=== PATIENT | female | born 1945 | race Caucasian/White ===

== ENCOUNTER → 2016-08-18 | Outpatient (CLI) | payer MEDICARE, MEDICAID ==
[~2016-08-18] MED LIST: ALBU8.5H3 INH; ALBU8.5H5 INH; AZIT-14 PO; BENZ100C PO; BENZ100C4 PO; BETA15CR5 TP; BUDE10.2 INH; BUDE10.22 INH; CEFD300C2 PO; CHOL4PAC2 PO; DIPH28CR3 TP; DOCU-30 PO; FLUO15CR2 TP; GUAI10LI PO; GUAI600T22 PO; IPRA3AMP NEB; LACT1CAP24 PO; LEVO500T33 PO; LEVO750T26 PO; METH4TAB2 PO; MONT10TA9 PO; NEB; NICO1PAT5 TD; OXYC-229 PO; POLY17PO5 PO; PRED20TA PO; SULF1TAB24 PO; TIOT18CA INH; TRIA115C TP; roxicet PO; sodium PO
== END | disposition home or self-care (01) ==
LOC: CFH 11:07
PROVIDERS: ATTEND Nurse Practitioner
DX: Z02.9 Encounter for administrative examinations, unspecified (principal)

== ENCOUNTER 2016-08-31 03:53 | Inpatient (IN) | payer MEDICARE, MEDICAID ==
[~2016-08-31] VITALS: Ht 162.6 cm; Wt 51.0 kg
[2016-08-31] MEDS ORDERED: SODIUM CHLORIDE FLUSH 10ML SYR IVF ONE (05:00)
[2016-08-31 05:51] LABS: HEMOGLOBIN 12.9 g/dL (11.7-16.4)
[2016-08-31 06:00] LABS: ASPARTATE AMINO TRANSFERASE 16 U/L (15-37); BLOOD UREA NITROGEN 12 mg/dL (7-18)
[2016-08-31 06:11] LABS: IS PT STATUS REG ER OR PRE ER? YES
[2016-08-31] MEDS ORDERED: SODIUM CHLORIDE FLUSH 10ML SYR IVF PRN (06:30)
[2016-08-31] MEDS: methylPREDNISolone SOD SUCC 125 MG/2 ML IVPush SCH ×3 (07:30→21:09)
[2016-08-31] MEDS ORDERED: POTASSIUM CHLORIDE 20 MEQ TAB.ER.PRT PO ONE (07:30)
[2016-08-31] MEDS ORDERED: ONDANSETRON 2MG/ML, 2ML IVP PRN (07:30)
[2016-08-31] MEDS ORDERED: ENOXAPARIN 40 MG/0.4 ML SQ SCH (07:30)
[2016-08-31] MEDS ORDERED: TEMAZEPAM 15 MG CAPSULE PO PRN (07:30)
[2016-08-31] MEDS ORDERED: ACETAMINOPHEN 325 MG TABLET PO PRN (07:30)
[2016-08-31] MEDS ORDERED: OXYcodone/APAP 10/325MG TABLET PO PRN (07:30)
[2016-08-31] MEDS ORDERED: GUAIFENESIN/DM 200-20MG, 10ML UDC PO PRN (07:30)
[2016-08-31] MEDS ORDERED: methylPREDNISolone SOD SUCC 125 MG/2 ML ONE (08:32)
[2016-08-31] MEDS ORDERED: POTASSIUM CHLORIDE 20 MEQ TAB.ER.PRT ONE (08:33)
[2016-08-31] MEDS: SODIUM CHLORIDE FLUSH 10ML SYR IVF SCH ×2 (09:00→21:09)
[2016-08-31] MEDS ORDERED: ALBUTEROL/IPRATROPIUM 2.5MG/0.5MG, 3 ML ONE ×2 (09:39→13:51)
[2016-08-31] MEDS ORDERED: ALBUTEROL/IPRATROPIUM 2.5MG/0.5MG, 3 ML NPPB SCH (10:00)
[2016-08-31] MEDS: FLUTICASONE/VILANTEROL 200-25MCG/INH INH SCH (10:00)
[2016-08-31] MEDS ORDERED: ALBUTEROL/IPRATROPIUM 2.5MG/0.5MG, 3 ML NPPB PRN ×2 (10:00→15:00)
[2016-08-31 10:50] VITALS: BP 97/55
[2016-08-31] MEDS: DOXYCYCLINE 100 MG in DEXTROSE 5% 250 ML IV SCH ×2 (11:09→23:25)
[2016-08-31] MEDS: FLUTICASONE NASAL SPRAY 16GM NAS SCH ×2 (11:09→21:09)
[2016-08-31 13:31] VITALS: BP 100/63
[2016-08-31] MEDS: ALBUTEROL/IPRATROPIUM 2.5MG/0.5MG, 3 ML NPPB SCH ×3 (18:15→23:43)
[2016-08-31 18:39] VITALS: BP 110/66
[2016-08-31] MEDS ORDERED: MONTELUKAST 10 MG TABLET PO SCH (21:00)
[2016-09-01 01:18] VITALS: BP 104/68
[2016-09-01] MEDS: methylPREDNISolone SOD SUCC 125 MG/2 ML IVPush SCH ×3 (05:25→12:59)
[2016-09-01 05:29] LABS: BLOOD UREA NITROGEN 21 mg/dL (7-18)
[2016-09-01 05:46] LABS: HEMOGLOBIN 14.4 g/dL (11.7-16.4)
[2016-09-01] MEDS: ALBUTEROL/IPRATROPIUM 2.5MG/0.5MG, 3 ML NPPB SCH ×3 (06:00→13:49)
[2016-09-01] MEDS: ENOXAPARIN 40 MG/0.4 ML SQ SCH ×2 (07:30→08:07)
[2016-09-01] MEDS: FLUTICASONE NASAL SPRAY 16GM NAS SCH (08:07)
[2016-09-01 08:22] VITALS: BP 96/62
[2016-09-01 09:38] VITALS: BP 98/60
[2016-09-01] MEDS: DOXYCYCLINE 100 MG in DEXTROSE 5% 250 ML IV SCH (09:53)
[2016-09-01] MEDS: SODIUM CHLORIDE FLUSH 10ML SYR IVF SCH (09:53)
[2016-09-01] MEDS: FLUTICASONE/VILANTEROL 200-25MCG/INH INH SCH (12:59)
[2016-09-01 13:00] VITALS: BP 111/75
[2016-09-01] MEDS ORDERED: DOXY100C2 PO (14:27)
[2016-09-01] MEDS ORDERED: METH4TAB2 PO (14:27)
== END 2016-09-01 15:00 | disposition home or self-care (01) | DRG 189 ==
LOC: ED 05:03 → EDIP 06:30 → 4EST 08:56
DX: J96.21 Acute and chronic respiratory failure with hypoxia (principal); J44.1 Chronic obstructive pulmonary disease with (acute) exacerbation; F11.20 Opioid dependence, uncomplicated; J44.0 Chronic obstructive pulmonary disease with (acute) lower respiratory infection; D69.6 Thrombocytopenia, unspecified; E11.9 Type 2 diabetes mellitus without complications; F17.200 Nicotine dependence, unspecified, uncomplicated; G47.33 Obstructive sleep apnea (adult) (pediatric); G89.29 Other chronic pain; I11.0 Hypertensive heart disease with heart failure; I48.91 Unspecified atrial fibrillation; I50.9 Heart failure, unspecified; J20.9 Acute bronchitis, unspecified; K21.9 Gastro-esophageal reflux disease without esophagitis; M54.9 Dorsalgia, unspecified; M10.9 Gout, unspecified; Z82.49 Family history of ischemic heart disease and other diseases of the circulatory system; Z99.81 Dependence on supplemental oxygen; Z90.89 Acquired absence of other organs; R42 Dizziness and giddiness
CPT/HCPCS: 36415; 71010; 80048; 80053; 83880; 84484; 85025; 87070; 87205; 87324; 93005; 94640; 96374; J1650; J7060; J7620; J2930; J7512

== ENCOUNTER 2016-09-03 13:46 | Emergency (ER) | payer MEDICARE, MEDICAID ==
[~2016-09-03] VITALS: Ht 162.6 cm; Wt 54.5 kg
[~2016-09-03 13:46] MED LIST changes: +DOXY100C2 PO
[2016-09-03] MEDS ORDERED: SODIUM CHLORIDE 0.9% 1,000ML IVBOLUS ONE (14:30)
[2016-09-03] MEDS ORDERED: KETOROLAC 30 MG/1 ML IVPush ONE (14:30)
[2016-09-03] MEDS ORDERED: SODIUM CHLORIDE FLUSH 10ML SYR IVF ONE (14:30)
[2016-09-03 14:54] LABS: BLOOD UREA NITROGEN 20 mg/dL (7-18)
[2016-09-03 14:58] LABS: HEMOGLOBIN 14.9 g/dL (11.7-16.4)
[2016-09-03 15:02] LABS: IS PT STATUS REG ER OR PRE ER? YES
[2016-09-03 16:09] VITALS: BP 119/77
== END 2016-09-03 17:59 | disposition home or self-care (01) ==
LOC: ED 15:56
DX: R52 Pain, unspecified (principal); E11.9 Type 2 diabetes mellitus without complications; I48.91 Unspecified atrial fibrillation; I11.0 Hypertensive heart disease with heart failure; J44.9 Chronic obstructive pulmonary disease, unspecified; I50.9 Heart failure, unspecified; D72.829 Elevated white blood cell count, unspecified
CPT/HCPCS: 36415; 71010; 80048; 82040; 82550; 84439; 84443; 84484; 85025; 93005; 99285; J7030

== ENCOUNTER 2016-09-07 19:24 | Emergency (ER) | payer MEDICARE, MEDICAID ==
[~2016-09-07] VITALS: Ht 162.6 cm; Wt 54.1 kg
[2016-09-07] MEDS ORDERED: ALBUTEROL SULFATE 2.5 MG/3 ML NPPB ONE (20:00)
[2016-09-07] MEDS ORDERED: SODIUM CHLORIDE FLUSH 10ML SYR IVF ONE (20:00)
[2016-09-07 21:10] LABS: HEMOGLOBIN 12.6 g/dL (11.7-16.4)
[2016-09-07 21:11] LABS: ASPARTATE AMINO TRANSFERASE 29 U/L (15-37); BLOOD UREA NITROGEN 11 mg/dL (7-18)
[2016-09-07] MEDS ORDERED: SODIUM CHLORIDE 0.9% 1,000 ML IV ONE (22:25)
[2016-09-07] MEDS ORDERED: AZITHROMYCIN 500 MG in SODIUM CHLORIDE 0.9% 250 ML IVPB ONE (22:30)
[2016-09-07] MEDS ORDERED: SODIUM CHLORIDE 0.9% 1,000ML IVBOLUS ONE (22:30)
[2016-09-07] MEDS ORDERED: CEFTRIAXONE PMX 1GM/50ML 50 ML IVPB ONE (22:30)
[2016-09-07] MEDS ORDERED: CEFTRIAXONE PMX 1GM/50ML 50 ML ONE (22:50)
[2016-09-08 00:13] VITALS: BP 106/57
== END 2016-09-08 00:54 | disposition left against medical advice (07) ==
LOC: ED 23:06
DX: J15.9 Unspecified bacterial pneumonia (principal); J44.1 Chronic obstructive pulmonary disease with (acute) exacerbation; R19.7 Diarrhea, unspecified; M54.9 Dorsalgia, unspecified; G89.29 Other chronic pain; I48.91 Unspecified atrial fibrillation; Z99.81 Dependence on supplemental oxygen
CPT/HCPCS: 36415; 71010; 80053; 83605; 85025; 87040; 93005; 94640; 96365; 99285; J0696; J7030; J7512; J7613

== ENCOUNTER 2016-10-11 20:54 | Inpatient (IN) | payer MEDICARE, MEDICAID ==
[~2016-10-11] VITALS: Ht 167.6 cm; Wt 58.8 kg
[~2016-10-11 20:54] MED LIST changes: -AZIT-14 PO; +AZIT250T89 PO; -CEFD300C2 PO; +CEFD300C37 PO
[2016-10-11] MEDS ORDERED: ALBUTEROL/IPRATROPIUM 2.5MG/0.5MG, 3 ML NPPB ONE (21:30)
[2016-10-11] MEDS ORDERED: AZITHROMYCIN 500 MG in SODIUM CHLORIDE 0.9% 250 ML IVPB ONE (22:00)
[2016-10-11] MEDS ORDERED: SODIUM CHLORIDE FLUSH 10ML SYR IVF ONE (22:00)
[2016-10-11] MEDS ORDERED: SODIUM CHLORIDE 0.9% 1,000ML IVBOLUS ONE (22:00)
[2016-10-11] MEDS ORDERED: CEFTRIAXONE 1,000 MG in SODIUM CHLORIDE 0.9% 50 ML IVPB ONE (22:00)
[2016-10-11] MEDS ORDERED: ALBUTEROL/IPRATROPIUM 2.5MG/0.5MG, 3 ML ONE (22:00)
[2016-10-11 22:20] LABS: ASPARTATE AMINO TRANSFERASE 19 U/L (15-37); BLOOD UREA NITROGEN 15 mg/dL (7-18)
[2016-10-11 22:21] LABS: IS PT STATUS REG ER OR PRE ER? YES
[2016-10-11 22:24] LABS: DIFF TOTAL CELLS COUNTED 100 CELL DIFF
[2016-10-11 22:27] LABS: VERIFY COUNTS? YES
[2016-10-11 22:28] LABS: LARGE PLATELETS 1+
[2016-10-11] MEDS ORDERED: PLEASE ENTER HEIGHT AND WEIGHT MC SCH (22:30)
[2016-10-11] MEDS ORDERED: CEFTRIAXONE PMX 1GM/50ML 50 ML ONE (22:33)
[2016-10-11] MEDS ORDERED: OXYcodone/APAP 5/325MG TABLET PO PRN (23:30)
[2016-10-11] MEDS ORDERED: ACETAMINOPHEN 325 MG TABLET PO PRN (23:30)
[2016-10-11] MEDS ORDERED: methylPREDNISolone SOD SUCC 125 MG/2 ML IVPush SCH (23:30)
[2016-10-11] MEDS: CEFTRIAXONE 1,000 MG in SODIUM CHLORIDE 0.9% 50 ML IV SCH (23:30)
[2016-10-11] MEDS ORDERED: ONDANSETRON 2MG/ML, 2ML IVPush PRN (23:30)
[2016-10-12 00:33] VITALS: BP 106/58
[2016-10-12] MEDS: GUAIFENESIN 200 MG TABLET PO SCH ×5 (01:38→20:29)
[2016-10-12] MEDS: ENOXAPARIN 40 MG/0.4 ML SQ SCH ×2 (01:38→23:30)
[2016-10-12] MEDS: FAMOTIDINE 20 MG TABLET PO SCH ×3 (01:38→20:29)
[2016-10-12] MEDS: SODIUM CHLORIDE 0.9% 1,000 ML IV SCH ×3 (01:39→20:27)
[2016-10-12] MEDS: AZITHROMYCIN 500 MG in SODIUM CHLORIDE 0.9% 250 ML IV SCH (01:39)
[2016-10-12 01:43] VITALS: BP 106/50
[2016-10-12] MEDS ORDERED: ALBUTEROL/IPRATROPIUM 2.5MG/0.5MG, 3 ML NPPB PRN (02:30)
[2016-10-12 05:25] LABS: BLOOD UREA NITROGEN 14 mg/dL (7-18)
[2016-10-12 05:34] LABS: DIFF TOTAL CELLS COUNTED 100 CELL DIFF
[2016-10-12 05:36] LABS: LARGE PLATELETS 1+; VERIFY COUNTS? YES
[2016-10-12] MEDS: ALBUTEROL/IPRATROPIUM 2.5MG/0.5MG, 3 ML NPPB SCH ×4 (07:39→20:00)
[2016-10-12 08:01] VITALS: BP 120/54
[2016-10-12] MEDS: methylPREDNISolone SOD SUCC 125 MG/2 ML IVPush SCH ×2 (08:33→20:28)
[2016-10-12] MEDS: CHOLESTYRAMINE 4GM PACKET PO SCH (08:34)
[2016-10-12] MEDS: FLUTICASONE/VILANTEROL 100-25MCG/INH INH SCH (08:43)
[2016-10-12] MEDS: DIPHENHYDRAMINE/ZINC CRM 2%, 30GM TP SCH ×3 (08:43→20:28)
[2016-10-12] MEDS: CEFTRIAXONE 1,000 MG in SODIUM CHLORIDE 0.9% 50 ML IV SCH ×2 (11:44→23:45)
[2016-10-12 13:35] VITALS: BP 101/62
[2016-10-12] MEDS ORDERED: NICOTINE 21 MG/24 HR PATCH.TD24 TD SCH (14:30)
[2016-10-12] MEDS ORDERED: SODIUM CHLORIDE 0.9%, 500ML IVBOLUS ONE (16:30)
[2016-10-12 18:36] VITALS: BP 103/61
[2016-10-12] MEDS ORDERED: MONTELUKAST 10 MG TABLET PO SCH (21:00)
[2016-10-13] MEDS: AZITHROMYCIN 500 MG in SODIUM CHLORIDE 0.9% 250 ML IV SCH (01:54)
[2016-10-13 02:15] VITALS: BP 108/65
[2016-10-13] MEDS: GUAIFENESIN 200 MG TABLET PO SCH (04:16)
[2016-10-13 05:38] LABS: BLOOD UREA NITROGEN 15 mg/dL (7-18)
[2016-10-13] MEDS: SODIUM CHLORIDE 0.9% 1,000 ML IV SCH (06:27)
[2016-10-13 06:58] VITALS: BP 119/70
[2016-10-13] MEDS ORDERED: SODIUM CHLORIDE 0.45% 1,000 ML IV SCH (07:30)
[2016-10-13] MEDS: ALBUTEROL/IPRATROPIUM 2.5MG/0.5MG, 3 ML NPPB SCH (08:05)
[2016-10-13] MEDS: CHOLESTYRAMINE 4GM PACKET PO SCH (09:00)
[2016-10-13] MEDS: DIPHENHYDRAMINE/ZINC CRM 2%, 30GM TP SCH (09:00)
[2016-10-13] MEDS: FLUTICASONE/VILANTEROL 100-25MCG/INH INH SCH (09:25)
[2016-10-13] MEDS: methylPREDNISolone SOD SUCC 125 MG/2 ML IVPush SCH (09:25)
[2016-10-13] MEDS: FAMOTIDINE 20 MG TABLET PO SCH (09:26)
== END 2016-10-13 10:10 | disposition left against medical advice (07) | DRG 871 ==
LOC: ED 22:25 → EDIP 22:26 → ED 22:38 → 4WST 10-12 00:02
PROVIDERS: ADMIT Internal Medicine; ATTEND Internal Medicine
DX: A41.9 Sepsis, unspecified organism (principal); J96.21 Acute and chronic respiratory failure with hypoxia; J15.9 Unspecified bacterial pneumonia; J44.0 Chronic obstructive pulmonary disease with (acute) lower respiratory infection; J44.1 Chronic obstructive pulmonary disease with (acute) exacerbation; E87.0 Hyperosmolality and hypernatremia; E87.2 Acidosis; I50.9 Heart failure, unspecified; I11.0 Hypertensive heart disease with heart failure; I48.91 Unspecified atrial fibrillation; K21.9 Gastro-esophageal reflux disease without esophagitis; M10.9 Gout, unspecified; E11.65 Type 2 diabetes mellitus with hyperglycemia; F17.200 Nicotine dependence, unspecified, uncomplicated; E87.8 Other disorders of electrolyte and fluid balance, not elsewhere classified; Z82.49 Family history of ischemic heart disease and other diseases of the circulatory system; Z99.81 Dependence on supplemental oxygen; Z91.19 Patient's noncompliance with other medical treatment and regimen; T38.0X5A Adverse effect of glucocorticoids and synthetic analogues, initial encounter
CPT/HCPCS: 36415; 71010; 80048; 80053; 83036; 83605; 84145; 84439; 84443; 84484; 85025; 87040; 87070; 87205; 93005; 94640; 96365; J0456; J0696; J1650; J7620; J2930; J7030; J7040; J7050; J7512

== ENCOUNTER → 2017-04-26 | Outpatient (CLI) | payer MEDICARE, MEDICAID ==
[~2017-04-26] MED LIST changes: -ALBU8.5H3 INH; +ALBU8.5H8 INH; +BENZ-17 PO; -BENZ100C4 PO; +DOCU-131 PO; -DOCU-30 PO; -GUAI600T22 PO; +GUAI600T31 PO; -LEVO500T33 PO; +LEVO500T47 PO; +NICO-487 TD; -NICO1PAT5 TD; -OXYC-229 PO; +OXYC-307 PO
== END | disposition home or self-care (01) ==
LOC: RAD 11:08
PROVIDERS: ATTEND Nurse Practitioner
DX: M47.896 Other spondylosis, lumbar region (principal); M41.86 Other forms of scoliosis, lumbar region; M48.061 Spinal stenosis, lumbar region without neurogenic claudication; M80.08XS Age-related osteoporosis with current pathological fracture, vertebra(e), sequela; M51.34 Other intervertebral disc degeneration, thoracic region; G89.29 Other chronic pain
CPT/HCPCS: 72072; 72100

== ENCOUNTER 2017-05-05 11:57 | Emergency (ER) | payer MEDICARE, MEDICAID ==
[~2017-05-05] VITALS: Ht 162.6 cm; Wt 54.7 kg
[2017-05-05 12:06] VITALS: BP 105/70
== END 2017-05-05 12:44 | disposition home or self-care (01) ==
LOC: ED 12:26
DX: Z00.00 Encounter for general adult medical examination without abnormal findings (principal)
CPT/HCPCS: 99281

== ENCOUNTER 2017-08-11 21:19 | Emergency (ER) | payer MEDICARE, MEDICAID ==
[~2017-08-11] VITALS: Ht 167.6 cm; Wt 56.7 kg
[2017-08-11] MEDS ORDERED: ALBUTEROL/IPRATROPIUM 2.5MG/0.5MG, 3 ML ONE (21:45)
[2017-08-11 21:49] LABS: BASOPHILS # (AUTO) 0.08 x10^3/uL (0-0.1); BASOPHILS % (AUTO) 1 % (0-1); EOSINOPHILS # (AUTO) 0.31 x10^3/uL (0-0.4); EOSINOPHILS % (AUTO) 3 % (1-7); LYMPHOCYTES # (AUTO) 2.14 x10^3/uL (1-3.4); LYMPHOCYTES % (AUTO) 23 % (22-44); MD NO; MEAN CORPUSCULAR HEMOGLOBIN 30.8 pg (27.0-34.8); MEAN CORPUSCULAR HGB CONC 33.8 g/dL (32.4-35.8); MEAN CORPUSCULAR VOLUME 91.3 fL (80-100); MEAN PLATELET VOLUME 10.9 fL (7.4-10.4); MONOCYTES # (AUTO) 0.71 x10^3/uL (0.2-0.8); MONOCYTES % (AUTO) 8 % (2-9); NEUTROPHILS # (AUTO) 6.02 x10^3/uL (1.8-6.8); NEUTROPHILS % (AUTO) 65 % (42-75); PLATELET COUNT 199 x10^3/uL (130-400); RED BLOOD COUNT 4.11 x10^6/uL (3.82-5.3); RED CELL DISTRIBUTION WIDTH 13.3 % (9.6-15.2)
[2017-08-11 21:56] LABS: INTERNATIONAL NORMALIZED RATIO 1.04 (0.93-1.1); PROTHROMBIN TIME 10.8 Seconds (9.6-11.5)
[2017-08-11 22:00] LABS: ALANINE AMINOTRANSFERASE 18 U/L (12-78); ALBUMIN 3.4 g/dL (3.4-5.0); ANION GAP 9 mmol/L (5-15); CALCIUM 8.1 mg/dL (8.5-10.1); CHLORIDE 110 mmol/L (98-107); CREATININE 0.99 mg/dL (0.55-1.02)
[2017-08-11] MEDS ORDERED: SODIUM CHLORIDE FLUSH 10ML SYR IVF ONE (22:00)
[2017-08-11] MEDS ORDERED: ALBUTEROL/IPRATROPIUM 2.5MG/0.5MG, 3 ML NEB ONE (22:00)
[2017-08-11 22:04] LABS: ALKALINE PHOSPHATASE 76 U/L (45-117); BILIRUBIN,TOTAL 0.2 mg/dL (0.2-1.0); TOTAL PROTEIN 6.8 g/dL (6.4-8.2); TROPONIN I < 0.015 ng/mL (0.000-0.045)
[2017-08-11] MEDS ORDERED: methylPREDNISolone SOD SUCC 125 MG/2 ML ONE (22:29)
[2017-08-11] MEDS ORDERED: methylPREDNISolone SOD SUCC 125 MG/2 ML IVPush ONE (22:30)
[2017-08-11 23:20] VITALS: BP 124/80
== END 2017-08-11 23:22 | disposition home or self-care (01) ==
LOC: ED 22:45
DX: J44.1 Chronic obstructive pulmonary disease with (acute) exacerbation (principal); R91.1 Solitary pulmonary nodule; I48.91 Unspecified atrial fibrillation; E11.9 Type 2 diabetes mellitus without complications; J44.9 Chronic obstructive pulmonary disease, unspecified; I10 Essential (primary) hypertension; D69.6 Thrombocytopenia, unspecified; D72.829 Elevated white blood cell count, unspecified; I50.9 Heart failure, unspecified
CPT/HCPCS: 36415; 71045; 80053; 83880; 84484; 85025; 85610; 85730; 93005; 94640; 96374; 99285; J2930; J7620

== ENCOUNTER → 2017-11-06 | Outpatient (CLI) | payer MEDICAID, MEDICARE | END | disposition home or self-care (01) | LOC: CFH 12:21 | PROVIDERS: ATTEND Nurse Practitioner Family | DX: J44.9 Chronic obstructive pulmonary disease, unspecified (principal); R91.8 Other nonspecific abnormal finding of lung field; R93.8 Abnormal findings on diagnostic imaging of other specified body structures; F17.200 Nicotine dependence, unspecified, uncomplicated | CPT/HCPCS: 71250 ==

== ENCOUNTER 2017-11-29 20:30 | Emergency (ER) | payer MEDICAID, MEDICARE ==
[~2017-11-29] VITALS: Ht 162.6 cm; Wt 53.2 kg
[2017-11-29 20:39] VITALS: BP 113/75
[2017-11-29 21:59] LABS: BASOPHILS # (AUTO) 0.02 x10^3/uL (0-0.1); BASOPHILS % (AUTO) 0 % (0-1); EOSINOPHILS # (AUTO) 0.29 x10^3/uL (0-0.4); EOSINOPHILS % (AUTO) 3 % (1-7); LYMPHOCYTES % (AUTO) 20 % (22-44); MD NO; MEAN CORPUSCULAR HEMOGLOBIN 30.8 pg (27.0-34.8); MEAN CORPUSCULAR HGB CONC 33.4 g/dL (32.4-35.8); MEAN CORPUSCULAR VOLUME 92.1 fL (80-100); MEAN PLATELET VOLUME 11.3 fL (7.4-10.4); MONOCYTES # (AUTO) 0.81 x10^3/uL (0.2-0.8); MONOCYTES % (AUTO) 8 % (2-9); NEUTROPHILS % (AUTO) 69 % (42-75); PLATELET COUNT 158 x10^3/uL (130-400); RED CELL DISTRIBUTION WIDTH 13.6 % (9.6-15.2)
[2017-11-29 22:07] LABS: ALANINE AMINOTRANSFERASE 20 U/L (12-78); ALBUMIN 3.3 g/dL (3.4-5.0); ANION GAP 5 mmol/L (5-15); CALCIUM 8.7 mg/dL (8.5-10.1); CHLORIDE 110 mmol/L (98-107); CREATININE 0.76 mg/dL (0.55-1.02)
[2017-11-29 22:11] LABS: ALKALINE PHOSPHATASE 69 U/L (45-117); BILIRUBIN,TOTAL 0.2 mg/dL (0.2-1.0); TOTAL PROTEIN 6.5 g/dL (6.4-8.2)
== END 2017-11-29 22:54 | disposition home or self-care (01) ==
LOC: ED 21:15
DX: M79.652 Pain in left thigh (principal); I48.91 Unspecified atrial fibrillation; J44.9 Chronic obstructive pulmonary disease, unspecified; I11.0 Hypertensive heart disease with heart failure; I50.9 Heart failure, unspecified; E11.9 Type 2 diabetes mellitus without complications; D69.6 Thrombocytopenia, unspecified; F17.210 Nicotine dependence, cigarettes, uncomplicated
CPT/HCPCS: 36415; 80053; 83880; 85025; 99285; 99406

== ENCOUNTER → 2018-01-25 | Outpatient (CLI) | payer MEDICARE ==
[~2018-01-25] MED LIST changes: -IPRA3AMP NEB; +IPRA3AMP30 NEB
== END | disposition home or self-care (01) ==
LOC: CFH 15:33
PROVIDERS: ATTEND Nurse Practitioner Family
DX: R91.8 Other nonspecific abnormal finding of lung field (principal); J44.9 Chronic obstructive pulmonary disease, unspecified; I42.9 Cardiomyopathy, unspecified; F17.200 Nicotine dependence, unspecified, uncomplicated
CPT/HCPCS: 71250

== ENCOUNTER 2018-04-21 14:58 | Emergency (ER) | payer MEDICARE ==
[~2018-04-21] VITALS: Ht 157.5 cm; Wt 56.0 kg
[2018-04-21] MEDS ORDERED: ALBUTEROL/IPRATROPIUM 2.5MG/0.5MG, 3 ML NPPB ONE (15:30)
[2018-04-21] MEDS ORDERED: ALBUTEROL/IPRATROPIUM 2.5MG/0.5MG, 3 ML ONE (15:45)
[2018-04-21 15:49] LABS: BASOPHILS # (AUTO) 0.06 x10^3/uL (0-0.1); BASOPHILS % (AUTO) 1 % (0-1); EOSINOPHILS # (AUTO) 0.33 x10^3/uL (0-0.4); EOSINOPHILS % (AUTO) 5 % (1-7); LYMPHOCYTES # (AUTO) 1.43 x10^3/uL (1-3.4); LYMPHOCYTES % (AUTO) 21 % (22-44); MD NO; MEAN CORPUSCULAR HEMOGLOBIN 31.1 pg (27.0-34.8); MEAN CORPUSCULAR HGB CONC 33.4 g/dL (32.4-35.8); MEAN CORPUSCULAR VOLUME 92.9 fL (80-100); MEAN PLATELET VOLUME 11.6 fL (7.4-10.4); MONOCYTES % (AUTO) 13 % (2-9); NEUTROPHILS # (AUTO) 4.26 x10^3/uL (1.8-6.8); NEUTROPHILS % (AUTO) 61 % (42-75); PLATELET COUNT 147 x10^3/uL (130-400); RED BLOOD COUNT 4.33 x10^6/uL (3.82-5.3); RED CELL DISTRIBUTION WIDTH 13.2 % (9.6-15.2)
[2018-04-21 15:59] VITALS: BP 93/61
[2018-04-21 16:01] LABS: ALBUMIN 3.5 g/dL (3.4-5.0); ANION GAP 7 mmol/L (5-15); CALCIUM 8.4 mg/dL (8.5-10.1); CHLORIDE 107 mmol/L (98-107)
[2018-04-21 16:05] LABS: ALANINE AMINOTRANSFERASE 21 U/L (12-78); ALKALINE PHOSPHATASE 66 U/L (45-117); BILIRUBIN,TOTAL 0.5 mg/dL (0.2-1.0); CREATININE 0.75 mg/dL (0.55-1.02); TOTAL PROTEIN 6.8 g/dL (6.4-8.2)
== END 2018-04-21 16:50 | disposition home or self-care (01) ==
LOC: ED 16:10
DX: J44.1 Chronic obstructive pulmonary disease with (acute) exacerbation (principal); E11.9 Type 2 diabetes mellitus without complications; I48.91 Unspecified atrial fibrillation; I11.0 Hypertensive heart disease with heart failure; I50.9 Heart failure, unspecified; F17.200 Nicotine dependence, unspecified, uncomplicated
CPT/HCPCS: 36415; 71046; 80053; 85025; 94640; 99284; J7512; J7620

== ENCOUNTER 2018-07-11 20:42 | Emergency (ER) | payer MEDICARE ==
[~2018-07-11] VITALS: Ht 162.6 cm; Wt 54.0 kg
[2018-07-11 21:12] LABS: BASOPHILS % (AUTO) 1 % (0-1); EOSINOPHILS # (AUTO) 0.34 x10^3/uL (0-0.4); EOSINOPHILS % (AUTO) 3 % (1-7); LYMPHOCYTES # (AUTO) 2.23 x10^3/uL (1-3.4); LYMPHOCYTES % (AUTO) 22 % (22-44); MD NO; MEAN CORPUSCULAR HEMOGLOBIN 30.8 pg (27.0-34.8); MEAN CORPUSCULAR HGB CONC 33.4 g/dL (32.4-35.8); MEAN CORPUSCULAR VOLUME 92.3 fL (80-100); MEAN PLATELET VOLUME 11.2 fL (7.4-10.4); MONOCYTES # (AUTO) 0.91 x10^3/uL (0.2-0.8); MONOCYTES % (AUTO) 9 % (2-9); NEUTROPHILS # (AUTO) 6.53 x10^3/uL (1.8-6.8); NEUTROPHILS % (AUTO) 65 % (42-75); PLATELET COUNT 180 x10^3/uL (130-400); RED BLOOD COUNT 4.46 x10^6/uL (3.82-5.3); RED CELL DISTRIBUTION WIDTH 13.4 % (9.6-15.2)
[2018-07-11 21:15] LABS: ANION GAP 3 mmol/L (5-15); CALCIUM 8.6 mg/dL (8.5-10.1); CHLORIDE 109 mmol/L (98-107); CREATININE 1.01 mg/dL (0.55-1.02)
--- NOTE | 2018-07-11 21:17 | NUR ---
PT REFUSED PREDNISONE. AWARE.
--- NOTE | 2018-07-11 21:25 | NUR ---
RT AT BS, BREATHING TX IN PROGRESS
[2018-07-11] MEDS ORDERED: ALBUTEROL/IPRATROPIUM 2.5MG/0.5MG, 3 ML ONE (21:26)
[2018-07-11] MEDS ORDERED: ALBUTEROL/IPRATROPIUM 2.5MG/0.5MG, 3 ML NPPB ONE (21:30)
[2018-07-11 21:45] LABS: TROPONIN I < 0.015 ng/mL (0.000-0.045)
--- NOTE | 2018-07-11 21:46 | NUR ---
PT AMBULATED TO BATHROOM WITH STEADY GAIT
[2018-07-11 23:12] VITALS: BP 115/69
--- NOTE | 2018-07-11 23:15 | NUR ---
Patient/Caregiver given discharge instructions and they have confirmed that they understand the instructions. Patient ambulatory with steady gait.
== END 2018-07-11 23:17 | disposition home or self-care (01) ==
LOC: ED 22:15
DX: J44.1 Chronic obstructive pulmonary disease with (acute) exacerbation (principal); F17.200 Nicotine dependence, unspecified, uncomplicated; I11.0 Hypertensive heart disease with heart failure; I50.9 Heart failure, unspecified; E11.9 Type 2 diabetes mellitus without complications; I48.91 Unspecified atrial fibrillation; Z87.01 Personal history of pneumonia (recurrent); Z72.9 Problem related to lifestyle, unspecified; Z91.14 Patient's other noncompliance with medication regimen; Z75.9 Unspecified problem related to medical facilities and other health care; Z63.8 Other specified problems related to primary support group
CPT/HCPCS: 36415; 71045; 80048; 82040; 83880; 84484; 85025; 93005; 94640; 99284; J7620

== ENCOUNTER 2018-08-12 10:33 | Inpatient (IN) | payer MEDICARE, MEDICAID, OTHER ==
[~2018-08-12] VITALS: Ht 162.6 cm; Wt 54.0 kg
--- NOTE | 2018-08-12 10:50 | NUR ---
BIB [facility] FROM HOME FOR INCREASED SOB AND PRODUCTIVE COUGH X4 DAYS. SPUTUM YELLOW GREEN IN COLOR. RAPID RESP RATE, 4L O2 AT ALL TIMES, 91%. CONNECTED TO ALL MONITORING, TACHY HR, RAPID BREATHING AND WARM TO TOUCH. CALL LIGHT WITHIN REACH. AWAITING MD ASSESSMENT AND ORDERS AT THIS TIME
--- NOTE | 2018-08-12 11:16 | NUR ---
MD TO BEDSIDE FOR ASSESSMENT
--- NOTE | 2018-08-12 11:28 | NUR ---
ORDERS RECEIVED, RAD AT BEDSIDE
[2018-08-12] MEDS ORDERED: methylPREDNISolone SOD SUCC 125 MG/2 ML IVP ONE (11:30)
[2018-08-12] MEDS ORDERED: CEFTRIAXONE PMX 1GM/50ML 50 ML IVPB ONE (11:30)
[2018-08-12] MEDS ORDERED: SODIUM CHLORIDE FLUSH 10ML SYR IVF ONE (11:30)
[2018-08-12] MEDS ORDERED: ALBUTEROL/IPRATROPIUM 2.5MG/0.5MG, 3 ML NPPB SCH (11:30)
[2018-08-12] MEDS ORDERED: ALBUTEROL/IPRATROPIUM 2.5MG/0.5MG, 3 ML ONE (11:36)
--- NOTE | 2018-08-12 11:38 | NUR ---
IV PLACED. LAB AT BEDSIDE. RT AT BEDSIDE FOR TREATMENT. TECH AT BEDSIDE FOR EKG
[2018-08-12] MEDS ORDERED: methylPREDNISolone SOD SUCC 125 MG/2 ML ONE (11:40)
[2018-08-12] MEDS ORDERED: CEFTRIAXONE PMX 1GM/50ML 50 ML ONE (11:40)
[2018-08-12] MEDS ORDERED: ACETAMINOPHEN 325 MG TABLET ONE (11:43)
--- NOTE | 2018-08-12 11:51 | NUR ---
PT MEDICATED PER JUL. ABX STARTED BLOOD CULTURES X2 COLLECTED PRIOR TO ADMIN. MEDICATED FOR FEVER. CALL LIGHT WITHIN REACH
[2018-08-12 11:56] LABS: MEAN CORPUSCULAR HEMOGLOBIN 31.1 pg (27.0-34.8); MEAN CORPUSCULAR HGB CONC 33.8 g/dL (32.4-35.8); MEAN PLATELET VOLUME 12.1 fL (7.4-10.4); PLATELET COUNT 137 x10^3/uL (130-400); RED BLOOD COUNT 4.72 x10^6/uL (3.82-5.3); RED CELL DISTRIBUTION WIDTH 13.5 % (9.6-15.2)
[2018-08-12] MEDS ORDERED: ACETAMINOPHEN 325 MG TABLET PO ONE (12:00)
[2018-08-12 12:06] LABS: ALANINE AMINOTRANSFERASE 17 U/L (12-78); ALBUMIN 3.5 g/dL (3.4-5.0); ANION GAP 7 mmol/L (5-15); CALCIUM 8.8 mg/dL (8.5-10.1); CHLORIDE 109 mmol/L (98-107)
[2018-08-12 12:11] LABS: ALKALINE PHOSPHATASE 73 U/L (45-117); BILIRUBIN,TOTAL 0.9 mg/dL (0.2-1.0); CREATININE 0.81 mg/dL (0.55-1.02); TOTAL PROTEIN 7.7 g/dL (6.4-8.2); TROPONIN I < 0.015 ng/mL (0.000-0.045)
[2018-08-12 12:36] LABS: BASOPHILS # (AUTO) 0.02 x10^3/uL (0-0.1); BASOPHILS % (AUTO) 0 % (0-1); EOSINOPHILS # (AUTO) 0.02 x10^3/uL (0-0.4); EOSINOPHILS % (AUTO) 0 % (1-7); LYMPHOCYTES # (AUTO) 0.91 x10^3/uL (1-3.4); LYMPHOCYTES % (AUTO) 5 % (22-44); MD SCAN; MONOCYTES % (AUTO) 8 % (2-9); NEUTROPHILS # (AUTO) 15.68 x10^3/uL (1.8-6.8); NEUTROPHILS % (AUTO) 87 % (42-75)
--- NOTE | 2018-08-12 13:02 | NUR ---
HOSPITALIST AT BEDSIDE FOR ADMIT ASSESSMENT
--- NOTE | 2018-08-12 13:12 | NUR ---
REPORT GIVEN TO PERI RN, PT READY FOR TRANSPORT
[2018-08-12] MEDS ORDERED: SODIUM CHLORIDE 0.9% 1,000ML IVBOLUS ONE (13:30)
[2018-08-12] MEDS ORDERED: ONDANSETRON 2MG/ML, 2ML IVPush PRN (13:30)
[2018-08-12] MEDS ORDERED: LABETALOL 5MG/ML, 20ML IVPush PRN (13:30)
[2018-08-12] MEDS ORDERED: POLYETHYLENE GLYCOL 17 GM PACKET PO PRN (13:30)
[2018-08-12] MEDS ORDERED: ONDANSETRON ODT 4 MG PO PRN (13:30)
[2018-08-12] MEDS: ENOXAPARIN 40 MG/0.4 ML SQ SCH (13:30)
[2018-08-12 13:53] VITALS: BP 96/57
[2018-08-12 14:02] LABS: FREE T4 (FREE THYROXINE) 1.06 ng/dL (0.76-1.46)
[2018-08-12] MEDS: AMPICILLIN/SULBACTAM 3 GM in SODIUM CHLORIDE 0.9% 100 ML IV SCH ×2 (15:03→21:06)
[2018-08-12 15:28] LABS: INTERNATIONAL NORMALIZED RATIO 1.04 (0.93-1.1); PROTHROMBIN TIME 10.9 Seconds (9.6-11.5)
[2018-08-12] MEDS ORDERED: ALBUTEROL/IPRATROPIUM 2.5MG/0.5MG, 3 ML NPPB PRN (16:00)
[2018-08-12] MEDS: GUAIFENESIN 200 MG TABLET PO SCH ×2 (17:37→21:00)
[2018-08-12 18:44] VITALS: BP 101/65
[2018-08-12] MEDS: ALBUTEROL/IPRATROPIUM 2.5MG/0.5MG, 3 ML NPPB SCH (19:56)
[2018-08-12 20:07] LABS: MICROSCOPIC AUTO
[2018-08-12 20:18] LABS: CULTURE INDICATED? NO
[2018-08-12] MEDS: TEMPLATE NON-FORMULARY MED. (Budesonide/Formoterol Fumarate (Symbicort 160-4.5 Mcg Inhaler INH SCH (21:00)
[2018-08-12] MEDS: DOXYCYCLINE 100MG TABLET PO SCH (21:06)
[2018-08-13 00:11] VITALS: BP 102/61
[2018-08-13] MEDS: AMPICILLIN/SULBACTAM 3 GM in SODIUM CHLORIDE 0.9% 100 ML IV SCH ×4 (03:12→20:56)
[2018-08-13] MEDS: GUAIFENESIN 200 MG TABLET PO SCH ×4 (03:40→20:55)
[2018-08-13 05:51] LABS: CHLORIDE 110 mmol/L (98-107)
[2018-08-13 05:52] LABS: BASOPHILS % (AUTO) 0 % (0-1); EOSINOPHILS # (AUTO) 0.06 x10^3/uL (0-0.4); EOSINOPHILS % (AUTO) 0 % (1-7); LYMPHOCYTES % (AUTO) 5 % (22-44); MD NO; MEAN CORPUSCULAR HEMOGLOBIN 30.8 pg (27.0-34.8); MEAN CORPUSCULAR HGB CONC 33.7 g/dL (32.4-35.8); MEAN CORPUSCULAR VOLUME 91.5 fL (80-100); MEAN PLATELET VOLUME 11.8 fL (7.4-10.4); MONOCYTES # (AUTO) 0.89 x10^3/uL (0.2-0.8); MONOCYTES % (AUTO) 6 % (2-9); NEUTROPHILS # (AUTO) 13.42 x10^3/uL (1.8-6.8); NEUTROPHILS % (AUTO) 88 % (42-75); PLATELET COUNT 132 x10^3/uL (130-400); RED BLOOD COUNT 4.06 x10^6/uL (3.82-5.3); RED CELL DISTRIBUTION WIDTH 13.3 % (9.6-15.2)
[2018-08-13 06:06] LABS: ALANINE AMINOTRANSFERASE 18 U/L (12-78); ALBUMIN 2.8 g/dL (3.4-5.0); ALKALINE PHOSPHATASE 70 U/L (45-117); ANION GAP 6 mmol/L (5-15); BILIRUBIN,TOTAL 0.3 mg/dL (0.2-1.0); CALCIUM 8.8 mg/dL (8.5-10.1); CREATININE 0.66 mg/dL (0.55-1.02); TOTAL PROTEIN 6.7 g/dL (6.4-8.2)
[2018-08-13 07:20] VITALS: BP 101/63
[2018-08-13] MEDS: ALBUTEROL/IPRATROPIUM 2.5MG/0.5MG, 3 ML NPPB SCH ×5 (07:40→22:51)
[2018-08-13] MEDS: TEMPLATE NON-FORMULARY MED. (Budesonide/Formoterol Fumarate (Symbicort 160-4.5 Mcg Inhaler INH SCH ×2 (09:00→21:00)
[2018-08-13] MEDS: DOXYCYCLINE 100MG TABLET PO SCH ×2 (09:25→20:56)
[2018-08-13] MEDS: SENNA/DOCUSATE TABLET PO SCH (09:26)
[2018-08-13] MEDS: ENOXAPARIN 40 MG/0.4 ML SQ SCH (13:30)
[2018-08-13 15:01] VITALS: BP 97/57
[2018-08-13 20:30] VITALS: BP 102/64
[2018-08-13] MEDS: GUAIFENESIN/DM 200-20MG, 10ML UDC PO PRN (23:24)
[2018-08-14 02:15] VITALS: BP 132/81
[2018-08-14] MEDS: AMPICILLIN/SULBACTAM 3 GM in SODIUM CHLORIDE 0.9% 100 ML IV SCH ×4 (02:44→21:16)
[2018-08-14] MEDS: GUAIFENESIN 200 MG TABLET PO SCH ×4 (05:08→21:15)
[2018-08-14] MEDS: GUAIFENESIN/DM 200-20MG, 10ML UDC PO PRN (05:30)
[2018-08-14] MEDS: ALBUTEROL/IPRATROPIUM 2.5MG/0.5MG, 3 ML NPPB SCH ×4 (05:53→19:18)
[2018-08-14 06:20] LABS: BASOPHILS # (AUTO) 0.07 x10^3/uL (0-0.1); BASOPHILS % (AUTO) 1 % (0-1); EOSINOPHILS # (AUTO) 0.32 x10^3/uL (0-0.4); EOSINOPHILS % (AUTO) 3 % (1-7); LYMPHOCYTES # (AUTO) 1.48 x10^3/uL (1-3.4); LYMPHOCYTES % (AUTO) 15 % (22-44); MD NO; MEAN CORPUSCULAR HEMOGLOBIN 30.7 pg (27.0-34.8); MEAN CORPUSCULAR HGB CONC 33.3 g/dL (32.4-35.8); MEAN CORPUSCULAR VOLUME 92.1 fL (80-100); MONOCYTES # (AUTO) 1.17 x10^3/uL (0.2-0.8); MONOCYTES % (AUTO) 12 % (2-9); NEUTROPHILS # (AUTO) 7.02 x10^3/uL (1.8-6.8); NEUTROPHILS % (AUTO) 70 % (42-75); PLATELET COUNT 135 x10^3/uL (130-400); RED CELL DISTRIBUTION WIDTH 13.4 % (9.6-15.2)
[2018-08-14 06:30] LABS: ALANINE AMINOTRANSFERASE 46 U/L (12-78); ALBUMIN 2.7 g/dL (3.4-5.0); ANION GAP 5 mmol/L (5-15); CALCIUM 8.1 mg/dL (8.5-10.1); CHLORIDE 115 mmol/L (98-107); CREATININE 0.69 mg/dL (0.55-1.02)
[2018-08-14 06:32] LABS: ALKALINE PHOSPHATASE 69 U/L (45-117); BILIRUBIN,TOTAL 0.3 mg/dL (0.2-1.0); TOTAL PROTEIN 6.2 g/dL (6.4-8.2)
[2018-08-14 07:58] VITALS: BP 107/73
[2018-08-14] MEDS: DOXYCYCLINE 100MG TABLET PO SCH ×2 (08:30→21:15)
[2018-08-14] MEDS: SENNA/DOCUSATE TABLET PO SCH (08:30)
[2018-08-14] MEDS: TEMPLATE NON-FORMULARY MED. (Budesonide/Formoterol Fumarate (Symbicort 160-4.5 Mcg Inhaler INH SCH ×2 (09:00→21:00)
[2018-08-14] MEDS: ENOXAPARIN 40 MG/0.4 ML SQ SCH (13:01)
[2018-08-14 14:26] VITALS: BP 110/72
[2018-08-14 20:16] VITALS: BP 114/65
[2018-08-15] MEDS: GUAIFENESIN/DM 200-20MG, 10ML UDC PO PRN ×2 (01:02→09:18)
[2018-08-15 01:09] VITALS: BP 132/84
[2018-08-15] MEDS: AMPICILLIN/SULBACTAM 3 GM in SODIUM CHLORIDE 0.9% 100 ML IV SCH (03:40)
[2018-08-15 05:27] LABS: BASOPHILS # (AUTO) 0.07 x10^3/uL (0-0.1); BASOPHILS % (AUTO) 1 % (0-1); EOSINOPHILS # (AUTO) 0.33 x10^3/uL (0-0.4); EOSINOPHILS % (AUTO) 4 % (1-7); LYMPHOCYTES # (AUTO) 1.71 x10^3/uL (1-3.4); LYMPHOCYTES % (AUTO) 21 % (22-44); MD NO; MEAN CORPUSCULAR HEMOGLOBIN 30.8 pg (27.0-34.8); MEAN CORPUSCULAR HGB CONC 33.2 g/dL (32.4-35.8); MEAN CORPUSCULAR VOLUME 92.8 fL (80-100); MEAN PLATELET VOLUME 11.2 fL (7.4-10.4); MONOCYTES # (AUTO) 1.08 x10^3/uL (0.2-0.8); MONOCYTES % (AUTO) 13 % (2-9); NEUTROPHILS # (AUTO) 4.88 x10^3/uL (1.8-6.8); NEUTROPHILS % (AUTO) 61 % (42-75); PLATELET COUNT 153 x10^3/uL (130-400); RED BLOOD COUNT 3.86 x10^6/uL (3.82-5.3); RED CELL DISTRIBUTION WIDTH 12.9 % (9.6-15.2)
[2018-08-15 05:35] LABS: ALANINE AMINOTRANSFERASE 43 U/L (12-78); ALBUMIN 2.6 g/dL (3.4-5.0); ANION GAP 3 mmol/L (5-15); CALCIUM 8.2 mg/dL (8.5-10.1); CHLORIDE 110 mmol/L (98-107); CREATININE 0.58 mg/dL (0.55-1.02)
[2018-08-15 05:38] LABS: ALKALINE PHOSPHATASE 63 U/L (45-117); BILIRUBIN,TOTAL 0.2 mg/dL (0.2-1.0); TOTAL PROTEIN 5.9 g/dL (6.4-8.2)
[2018-08-15] MEDS: GUAIFENESIN 200 MG TABLET PO SCH ×2 (05:41→11:00)
[2018-08-15] MEDS: ALBUTEROL/IPRATROPIUM 2.5MG/0.5MG, 3 ML NPPB SCH ×3 (06:25→14:00)
[2018-08-15 07:09] VITALS: BP 145/91
[2018-08-15] MEDS: TEMPLATE NON-FORMULARY MED. (Budesonide/Formoterol Fumarate (Symbicort 160-4.5 Mcg Inhaler INH SCH (09:00)
[2018-08-15] MEDS: SENNA/DOCUSATE TABLET PO SCH (09:00)
[2018-08-15] MEDS: DOXYCYCLINE 100MG TABLET PO SCH (09:18)
[2018-08-15 12:00] VITALS: BP 107/72
[2018-08-15] MEDS ORDERED: TIOT18CA INH (13:07)
[2018-08-15] MEDS ORDERED: AMOX1TAB64 PO (13:07)
[2018-08-15] MEDS ORDERED: GUAI200T3 PO (13:07)
[2018-08-15] MEDS ORDERED: DOXY100T PO (13:07)
[2018-08-15] MEDS: ENOXAPARIN 40 MG/0.4 ML SQ SCH (13:19)
[2018-08-15] MEDS ORDERED: AMPICILLIN/SULBACTAM 3 GM in SODIUM CHLORIDE 0.9% 50 ML IV SCH (15:00)
== END 2018-08-15 14:38 | disposition home or self-care (01) | DRG 871 ==
LOC: ED 12:06 → EDIP 12:19 → 3NE 13:00
PROVIDERS: ADMIT Hospitalist; ATTEND Hospitalist
DX: A41.9 Sepsis, unspecified organism (principal); J15.9 Unspecified bacterial pneumonia; J96.21 Acute and chronic respiratory failure with hypoxia; I47.1 Supraventricular tachycardia; I50.30 Unspecified diastolic (congestive) heart failure; R64 Cachexia; E11.9 Type 2 diabetes mellitus without complications; F17.210 Nicotine dependence, cigarettes, uncomplicated; I11.0 Hypertensive heart disease with heart failure; I48.91 Unspecified atrial fibrillation; J43.9 Emphysema, unspecified; K21.9 Gastro-esophageal reflux disease without esophagitis; M10.9 Gout, unspecified; Z66 Do not resuscitate; Z68.20 Body mass index [BMI] 20.0-20.9, adult
CPT/HCPCS: 36415; 71045; 80053; 81001; 83605; 83735; 84100; 84145; 84439; 84484; 85025; 85610; 87040; 87070; 87205; 93005; 93306; 94640; 96365; 96375; 99285; G0378; J0295; J0696; J7620; J2930; J7030

== ENCOUNTER 2018-08-30 21:14 | Inpatient (IN) | payer MEDICARE, MEDICAID, OTHER ==
[~2018-08-30] VITALS: Ht 162.6 cm; Wt 54.9 kg
[~2018-08-30 21:14] MED LIST changes: +AMOX1TAB64 PO; +DOXY100T PO; +GUAI200T3 PO
--- NOTE | 2018-08-30 21:34 | NUR ---
Pt wheeled to room with EDT.
--- NOTE | 2018-08-30 21:43 | NUR ---
Pt placed on SpO2 monitor, noted to be satting 91-93% on 2LPM NC, states that she is on between 2-4 LPM NC at home. Pt with productive cough, thick yellow sputum noted. Pt also c/o having a fever last night, states that she took 3 doses of ibuprofen today.
--- NOTE | 2018-08-30 21:47 | NUR ---
Dr. Johnson at bedside to evaluate pt.
[2018-08-30] MEDS ORDERED: SODIUM CHLORIDE 0.9% 1,000 ML IV ONE (21:48)
[2018-08-30] MEDS ORDERED: methylPREDNISolone SOD SUCC 125 MG/2 ML IVP ONE (22:00)
[2018-08-30] MEDS ORDERED: SODIUM CHLORIDE FLUSH 10ML SYR IVF ONE (22:00)
[2018-08-30] MEDS ORDERED: ALBUTEROL/IPRATROPIUM 2.5MG/0.5MG, 3 ML NPPB ONE (22:00)
--- NOTE | 2018-08-30 22:00 | NUR ---
PIV started, labs drawn including 1 set of blood cultures.
[2018-08-30 22:46] LABS: BASOPHILS % (AUTO) 1 % (0-1); EOSINOPHILS # (AUTO) 0.09 x10^3/uL (0-0.4); EOSINOPHILS % (AUTO) 1 % (1-7); LYMPHOCYTES % (AUTO) 9 % (22-44); MD NO; MEAN CORPUSCULAR HEMOGLOBIN 30.8 pg (27.0-34.8); MEAN CORPUSCULAR HGB CONC 33.4 g/dL (32.4-35.8); MEAN CORPUSCULAR VOLUME 92.2 fL (80-100); MEAN PLATELET VOLUME 12.5 fL (7.4-10.4); MONOCYTES # (AUTO) 1.19 x10^3/uL (0.2-0.8); MONOCYTES % (AUTO) 8 % (2-9); NEUTROPHILS # (AUTO) 12.08 x10^3/uL (1.8-6.8); NEUTROPHILS % (AUTO) 81 % (42-75); PLATELET COUNT 172 x10^3/uL (130-400); RED CELL DISTRIBUTION WIDTH 14.2 % (9.6-15.2)
[2018-08-30 22:49] LABS: ALANINE AMINOTRANSFERASE 20 U/L (12-78); ALBUMIN 3.8 g/dL (3.4-5.0); ANION GAP 5 mmol/L (5-15); CALCIUM 8.8 mg/dL (8.5-10.1); CHLORIDE 109 mmol/L (98-107); CREATININE 0.77 mg/dL (0.55-1.02)
--- NOTE | 2018-08-30 22:50 | NUR ---
Pt screaming for "help," call light hanging on pt's bed rail. RN in to answer pt's screams, pt states, "I have to go to the bathroom." Pt asked if she would be able to ambulate to the bathroom, pt states that she is not sure. Pt unhooked from all monitors, stands up to go to the bathroom, pt became very anxious and stated that she was going to urinate if she attempted to walk. RN advised pt to get back into bed and we would use a bed dalal, pt began yelling "I can't" and got down on all fours on the ground, pt was advised that is not helpful and was told to stand up and get back onto the gurney. Pt laid down on the gurney prone. Pt was told to get on her back and we would get the bed dalal underneath her, pt responded "it's too late, I already peed." Arik placed underneath pt, pt refused to take her pants off. Pt was replaced on all monitors and water was noted to be all over the tray, the cup was on the ground next to the doorway. Pt was asked if she threw her water to which she responded, "yes, I wanted to get your attention." RN advised pt that that is not appropriate behavior. Pt then stated, "I feel better after going pee."
[2018-08-30 22:53] LABS: ALKALINE PHOSPHATASE 76 U/L (45-117); BILIRUBIN,TOTAL 0.5 mg/dL (0.2-1.0); TOTAL PROTEIN 7.8 g/dL (6.4-8.2); TROPONIN I < 0.015 ng/mL (0.000-0.045)
[2018-08-30] MEDS ORDERED: CEFTRIAXONE PMX 1GM/50ML 50 ML IVPB ONE (23:00)
[2018-08-30] MEDS: VANCOMYCIN 1,100 MG in SODIUM CHLORIDE 0.9% 250 ML IV ONE (23:00)
[2018-08-30] MEDS ORDERED: VANCOMYCIN PER PHARMACY MC ONE (23:00)
[2018-08-30] MEDS ORDERED: AZITHROMYCIN 500 MG in SODIUM CHLORIDE 0.9% 250 ML IVPB ONE (23:00)
--- NOTE | 2018-08-30 23:20 | NUR ---
Pt's O2 noted to be 89%, EMT student in to investigate, pt did not have nasal cannula in her nose. NC replaced and O2 sats back up to 95%, O2 bumped to 3LPM upon getting her back to bed from bathroom attempt, per pt request.
[2018-08-30] MEDS ORDERED: methylPREDNISolone SOD SUCC 125 MG/2 ML ONE (23:28)
[2018-08-30] MEDS ORDERED: CEFTRIAXONE PMX 1GM/50ML 50 ML ONE (23:28)
[2018-08-30] MEDS ORDERED: ALBUTEROL/IPRATROPIUM 2.5MG/0.5MG, 3 ML ONE (23:31)
--- NOTE | 2018-08-30 23:37 | NUR ---
RT at bedside. IV ABX running. Pt medicated per JUL.
[2018-08-31] MEDS: VANCOMYCIN 1,100 MG in SODIUM CHLORIDE 0.9% 250 ML IV ONE
--- NOTE | 2018-08-31 00:01 | NUR ---
KEITH Medeiros started. IVF running. Pt resting on all monitors, no complaint for RN at this time. Pt advised that she is getting a second abx and responds "oh good." ST on monitor, rate 108.
--- NOTE | 2018-08-31 00:08 | NUR ---
Dr. Graves at bedside to evaluate pt.
--- NOTE | 2018-08-31 00:12 | NUR ---
Telephone SBAR report given to RNPamela. Pt made aware of new room assignment.
[2018-08-31] MEDS ORDERED: GUAIFENESIN/COD200MG-20MG/10ML LIQUID PO PRN (00:30)
[2018-08-31] MEDS ORDERED: VANCOMYCIN PER PHARMACY MC PRN (00:30)
[2018-08-31] MEDS ORDERED: POLYETHYLENE GLYCOL 17 GM PACKET PO PRN (00:30)
[2018-08-31] MEDS ORDERED: hydrALAzine 20 MG/ML, 1ML IVPush PRN (00:30)
[2018-08-31] MEDS ORDERED: ACETAMINOPHEN 325 MG TABLET PO PRN (00:30)
[2018-08-31] MEDS ORDERED: PIPERACILLIN/TAZO/PMX 3.375GM 50 ML IV SCH (00:30)
[2018-08-31] MEDS: HEPARIN 5,000 UNITS/ML, 1ML SQ SCH ×2 (00:30→07:24)
[2018-08-31 00:36] VITALS: BP 126/74
[2018-08-31 01:20] VITALS: BP 110/68
[2018-08-31] MEDS ORDERED: ALBUTEROL/IPRATROPIUM 2.5MG/0.5MG, 3 ML NPPB SCH ×2 (06:00→07:00)
[2018-08-31] MEDS ORDERED: PHARMACOKINETIC CONSULTATION MC ONE (06:30)
[2018-08-31] MEDS ORDERED: PHARMACOKINETIC MONITORING MC PRN (06:30)
[2018-08-31 06:42] VITALS: BP 100/64
[2018-08-31] MEDS ORDERED: BUDESONIDE 0.5 MG/2 ML INHA NPPB SCH (09:00)
[2018-09-01] MEDS ORDERED: VANCOMYCIN PMX 1GM/200ML 200 ML IV SCH
== END 2018-08-31 08:58 | disposition left against medical advice (07) | DRG 871 ==
LOC: ED 23:18 → EDIP 08-31 00:21 → 4EST 08-31 00:29 → 4NOR 08-31 01:11
PROVIDERS: ADMIT Family Medicine; ATTEND Family Medicine
DX: A41.9 Sepsis, unspecified organism (principal); J15.9 Unspecified bacterial pneumonia; J96.01 Acute respiratory failure with hypoxia; E11.9 Type 2 diabetes mellitus without complications; E89.0 Postprocedural hypothyroidism; F17.200 Nicotine dependence, unspecified, uncomplicated; G47.30 Sleep apnea, unspecified; I11.0 Hypertensive heart disease with heart failure; I48.91 Unspecified atrial fibrillation; I50.9 Heart failure, unspecified; Z53.21 Procedure and treatment not carried out due to patient leaving prior to being seen by health care provider; J43.9 Emphysema, unspecified; Y95 Nosocomial condition
CPT/HCPCS: 36415; 71045; 80053; 83605; 83880; 84484; 85025; 87040; 93005; 94640; 96374; G0378; J0696; J2543; J3370; J7620; J2930; J7030; J7050

== ENCOUNTER 2018-09-24 10:54 | Emergency (ER) | payer MEDICAID, MEDICARE, OTHER ==
[~2018-09-24] VITALS: Ht 157.5 cm; Wt 52.8 kg
[2018-09-24 11:03] VITALS: BP 101/63
[2018-09-24] MEDS ORDERED: ALBUTEROL/IPRATROPIUM 2.5MG/0.5MG, 3 ML NPPB ONE (11:30)
[2018-09-24] MEDS ORDERED: ALBUTEROL/IPRATROPIUM 2.5MG/0.5MG, 3 ML ONE (11:42)
[2018-09-24 12:07] LABS: BASOPHILS # (AUTO) 0.09 x10^3/uL (0-0.1); BASOPHILS % (AUTO) 1 % (0-1); EOSINOPHILS # (AUTO) 0.22 x10^3/uL (0-0.4); EOSINOPHILS % (AUTO) 2 % (1-7); LYMPHOCYTES # (AUTO) 1.49 x10^3/uL (1-3.4); LYMPHOCYTES % (AUTO) 15 % (22-44); MD NO; MEAN CORPUSCULAR HEMOGLOBIN 30.6 pg (27.0-34.8); MEAN CORPUSCULAR HGB CONC 33.5 g/dL (32.4-35.8); MEAN CORPUSCULAR VOLUME 91.5 fL (80-100); MEAN PLATELET VOLUME 11.4 fL (7.4-10.4); MONOCYTES # (AUTO) 0.85 x10^3/uL (0.2-0.8); MONOCYTES % (AUTO) 8 % (2-9); NEUTROPHILS # (AUTO) 7.58 x10^3/uL (1.8-6.8); NEUTROPHILS % (AUTO) 74 % (42-75); PLATELET COUNT 215 x10^3/uL (130-400); RED BLOOD COUNT 4.34 x10^6/uL (3.82-5.3); RED CELL DISTRIBUTION WIDTH 14.6 % (9.6-15.2)
[2018-09-24 12:18] LABS: CHLORIDE 110 mmol/L (98-107)
[2018-09-24 12:28] LABS: ALANINE AMINOTRANSFERASE 23 U/L (12-78); ALBUMIN 3.6 g/dL (3.4-5.0); ALKALINE PHOSPHATASE 71 U/L (45-117); ANION GAP 7 mmol/L (5-15); BILIRUBIN,TOTAL 0.5 mg/dL (0.2-1.0); CALCIUM 9.2 mg/dL (8.5-10.1); CREATININE 0.75 mg/dL (0.55-1.02); TOTAL PROTEIN 7.3 g/dL (6.4-8.2); TROPONIN I < 0.015 ng/mL (0.000-0.045)
== END 2018-09-24 12:55 | disposition home or self-care (01) ==
LOC: ED 12:40
DX: J43.9 Emphysema, unspecified (principal); I10 Essential (primary) hypertension; E11.9 Type 2 diabetes mellitus without complications; I11.0 Hypertensive heart disease with heart failure; I50.9 Heart failure, unspecified; I48.91 Unspecified atrial fibrillation
CPT/HCPCS: 36415; 71045; 80053; 83880; 84484; 85025; 93005; 94640; 99284; J7620

== ENCOUNTER 2019-03-17 12:12 | Emergency (ER) | payer MEDICARE, MEDICAID ==
[~2019-03-17] VITALS: Ht 157.5 cm; Wt 52.0 kg
[~2019-03-17 12:12] MED LIST changes: +FLUT1BLS3 IH; -GUAI200T3 PO; +GUAI200T37 PO
[2019-03-17 12:14] VITALS: BP 115/70
[2019-03-17] MEDS ORDERED: ALBUTEROL/IPRATROPIUM 2.5MG/0.5MG, 3 ML ONE ×2 (12:56→13:06)
[2019-03-17] MEDS ORDERED: ALBUTEROL/IPRATROPIUM 2.5MG/0.5MG, 3 ML NPPB SCH (13:00)
--- NOTE | 2019-03-17 13:28 | NUR ---
pt refuses full dose prednisone, pt states 60mg is too much and is only willing to take 20mg. pt states difficulty breathing has resolved s/p breathing tx. pt refuses EKG for sob, stating "I know it's my asthma, I just needed medication."
--- NOTE | 2019-03-17 13:45 | NUR ---
pt refuses second RT tx, edpa notified pt refusing rt tx and ekg.
--- NOTE | 2019-03-17 14:16 | NUR ---
pt given dc instructions and script, pt educated regarding rx for albuterol inhaler and neb. pt given bus voucher and discount rx coupons. pt given other rx assistance resources. pt a&o, resps even and unlabored. pt amb to dc desk with steady gait. nadn at dc.
== END 2019-03-17 14:17 | disposition home or self-care (01) ==
LOC: ED 14:00
DX: J44.1 Chronic obstructive pulmonary disease with (acute) exacerbation (principal); Z91.14 Patient's other noncompliance with medication regimen; F17.200 Nicotine dependence, unspecified, uncomplicated
CPT/HCPCS: 94640; 99283; J7512; J7620

== ENCOUNTER 2019-07-28 12:49 | Observation (INO) | payer MEDICARE, MEDICAID ==
[~2019-07-28] VITALS: Ht 162.6 cm; Wt 52.9 kg
[~2019-07-28 12:49] MED LIST changes: +MONT10TA11 PO; -MONT10TA9 PO
--- NOTE | 2019-07-28 13:31 | NUR ---
TASK RN: FIRST CONTACT WITH PT. ED MD AT BEDSIDE. PT C/O N/V/D STARTING 10 PM LAST NIGHT, LEFT LOWER LEG WOUND, AND FEELING "LIGHT HEADED". PT RESTING ON [place] WITH BEDRAILS UP X 2, CALL LGIHT WITHIN REACH. PT WEARS 2-2.5 L OF OXYGEN VIA NC AT HOME AT ALL TIMES. PT IS ON OXYGEN VIA NC AT 2L, CONNECTED TO SHIP MATE, NIBP CUFF, AND CONTINOUS PULSE OX MONITOR.
[2019-07-28 13:41] LABS: BASOPHILS # (AUTO) 0.01 x10^3/uL (0-0.1); BASOPHILS % (AUTO) 0 % (0-1); EOSINOPHILS # (AUTO) 0.16 x10^3/uL (0-0.4); EOSINOPHILS % (AUTO) 2 % (1-7); LYMPHOCYTES # (AUTO) 0.55 x10^3/uL (1-3.4); LYMPHOCYTES % (AUTO) 6 % (22-44); MD NO; MEAN CORPUSCULAR HEMOGLOBIN 30.5 pg (27.0-34.8); MEAN CORPUSCULAR HGB CONC 33.1 g/dL (32.4-35.8); MEAN CORPUSCULAR VOLUME 92.2 fL (80-100); MEAN PLATELET VOLUME 11.4 fL (7.4-10.4); MONOCYTES # (AUTO) 0.42 x10^3/uL (0.2-0.8); MONOCYTES % (AUTO) 4 % (2-9); NEUTROPHILS % (AUTO) 88 % (42-75); PLATELET COUNT 153 x10^3/uL (130-400); RED BLOOD COUNT 4.41 x10^6/uL (3.82-5.3); RED CELL DISTRIBUTION WIDTH 13.5 % (9.6-15.2)
[2019-07-28 13:50] LABS: ALANINE AMINOTRANSFERASE 24 U/L (12-78); ALBUMIN 3.3 g/dL (3.4-5.0); ANION GAP 7 mmol/L (5-15); CALCIUM 8.2 mg/dL (8.5-10.1); CHLORIDE 110 mmol/L (98-107); CREATININE 0.81 mg/dL (0.55-1.02)
[2019-07-28 13:52] LABS: ALKALINE PHOSPHATASE 69 U/L (45-117); BILIRUBIN,TOTAL 0.4 mg/dL (0.2-1.0); TOTAL PROTEIN 6.7 g/dL (6.4-8.2)
[2019-07-28] MEDS ORDERED: SODIUM CHLORIDE 0.9% 1,000ML IVBOLUS ONE ×2 (14:00→15:00)
[2019-07-28] MEDS ORDERED: SODIUM CHLORIDE FLUSH 10ML SYR IVF ONE (14:00)
[2019-07-28] MEDS ORDERED: ONDANSETRON 2MG/ML, 2ML IVPush ONE (14:00)
--- NOTE | 2019-07-28 15:06 | NUR ---
UPON RETURN FROM XRAY PT TO BATHROOM VIA W/C AND URINE SAMPLE OBTAINED. PT STATES SHE IS FEELING LIGHTHEADED. THEN AT BEDSIDE DISCUSSING TEST RESULTS AND SUGGESTING ADMISSION
[2019-07-28 15:28] LABS: MICROSCOPIC AUTO
[2019-07-28 15:29] LABS: CULTURE INDICATED? YES
[2019-07-28] MEDS ORDERED: ONDANSETRON 2MG/ML, 2ML ONE (15:51)
--- NOTE | 2019-07-28 15:52 | NUR ---
IV ESTABLISHED AND MEDICATED FOR NAUSEA WITH BOLUS INFUSING NOTED ON MAR
--- NOTE | 2019-07-28 16:56 | NUR ---
BEDSIDE ABDOMINAL ULTRASOUND BEING PERFORMED. SECOND LITER OF FLUIDS TO START
[2019-07-28] MEDS ORDERED: BACLOFEN 10 MG TABLET PO PRN (17:00)
[2019-07-28] MEDS ORDERED: NITROGLYCERIN 0.4 MG/SPRAY SL PRN (17:00)
[2019-07-28] MEDS ORDERED: ONDANSETRON ODT 4 MG PO PRN (17:00)
[2019-07-28] MEDS ORDERED: ACETAMINOPHEN 325 MG TABLET PO PRN (17:00)
[2019-07-28] MEDS ORDERED: NITROGLYCERIN 0.4 MG BOTTLE (25 TABS) SL PRN (17:00)
[2019-07-28] MEDS ORDERED: ONDANSETRON 2MG/ML, 2ML IVPush PRN (17:00)
[2019-07-28] MEDS ORDERED: hydrALAzine 20 MG/ML, 1ML IVPush PRN (17:00)
--- NOTE | 2019-07-28 18:19 | NUR ---
REPORT TO ELIAS SHAVER. PT TO BE TRANSPORTED TO FLOOR
[2019-07-28 18:43] VITALS: BP 111/67
[2019-07-28] MEDS ORDERED: ALBUTEROL/IPRATROPIUM 2.5MG/0.5MG, 3 ML NPPB SCH (20:00)
[2019-07-28] MEDS: NICOTINE 14MG/24 HR PATCH.TD24 TD SCH (20:27)
[2019-07-28] MEDS: PANTOPROZOLE 40MG TABLET PO SCH (20:28)
[2019-07-28] MEDS: BUDESONIDE 0.5 MG/2 ML INHA NPPB SCH (20:46)
[2019-07-28] MEDS ORDERED: OXYC-432 PO (23:07)
[2019-07-28 23:23] LABS: TROPONIN I < 0.015 ng/mL (0.000-0.045)
[2019-07-29 00:33] VITALS: BP 90/56
[2019-07-29 05:13] LABS: ANION GAP 4 mmol/L (5-15); CALCIUM 7.6 mg/dL (8.5-10.1); CHLORIDE 111 mmol/L (98-107)
[2019-07-29 05:17] LABS: BASOPHILS # (AUTO) 0.03 x10^3/uL (0-0.1); BASOPHILS % (AUTO) 1 % (0-1); EOSINOPHILS # (AUTO) 0.19 x10^3/uL (0-0.4); EOSINOPHILS % (AUTO) 4 % (1-7); LYMPHOCYTES # (AUTO) 0.85 x10^3/uL (1-3.4); LYMPHOCYTES % (AUTO) 16 % (22-44); MD NO; MEAN CORPUSCULAR HEMOGLOBIN 30.4 pg (27.0-34.8); MEAN CORPUSCULAR HGB CONC 32.8 g/dL (32.4-35.8); MEAN CORPUSCULAR VOLUME 92.7 fL (80-100); MEAN PLATELET VOLUME 11.4 fL (7.4-10.4); MONOCYTES # (AUTO) 0.47 x10^3/uL (0.2-0.8); MONOCYTES % (AUTO) 9 % (2-9); NEUTROPHILS # (AUTO) 3.79 x10^3/uL (1.8-6.8); NEUTROPHILS % (AUTO) 71 % (42-75); PLATELET COUNT 124 x10^3/uL (130-400); RED BLOOD COUNT 3.98 x10^6/uL (3.82-5.3); RED CELL DISTRIBUTION WIDTH 13.8 % (9.6-15.2)
[2019-07-29 05:21] LABS: CREATININE 0.68 mg/dL (0.55-1.02); TROPONIN I < 0.015 ng/mL (0.000-0.045)
[2019-07-29 07:02] VITALS: BP 100/63
[2019-07-29] MEDS: ALBUTEROL/IPRATROPIUM 2.5MG/0.5MG, 3 ML NPPB SCH ×4 (07:25→19:50)
[2019-07-29] MEDS: PANTOPROZOLE 40MG TABLET PO SCH (08:23)
[2019-07-29] MEDS: BUDESONIDE 0.5 MG/2 ML INHA NPPB SCH ×2 (10:22→19:50)
[2019-07-29 12:10] VITALS: BP 98/60
--- NOTE | 2019-07-29 15:07 | NUR ---
Pt will need SNF rehab at 5x/week. Addendum: 07/29/19 at 1508 by Donovan Ocasio PT Amended: Links added.
[2019-07-29] MEDS ORDERED: ALBUTEROL/IPRATROPIUM 2.5MG/0.5MG, 3 ML NPPB PRN (17:00)
[2019-07-29] MEDS: SODIUM CHLORIDE 0.9% 1,000 ML IV SCH (17:38)
[2019-07-29 19:29] VITALS: BP 115/69
[2019-07-29] MEDS: NICOTINE 14MG/24 HR PATCH.TD24 TD SCH (21:36)
[2019-07-29 23:12] VITALS: BP 119/77
[2019-07-30 00:10] VITALS: BP 121/71
[2019-07-30] MEDS ORDERED: TEMAZEPAM 15 MG CAPSULE PO PRN (00:40)
[2019-07-30] MEDS: SODIUM CHLORIDE 0.9% 1,000 ML IV SCH ×2 (00:46→08:57)
[2019-07-30 06:12] LABS: BASOPHILS # (AUTO) 0.03 x10^3/uL (0-0.1); BASOPHILS % (AUTO) 1 % (0-1); EOSINOPHILS # (AUTO) 0.17 x10^3/uL (0-0.4); EOSINOPHILS % (AUTO) 3 % (1-7); LYMPHOCYTES # (AUTO) 0.84 x10^3/uL (1-3.4); LYMPHOCYTES % (AUTO) 17 % (22-44); MD NO; MEAN CORPUSCULAR HEMOGLOBIN 30.5 pg (27.0-34.8); MEAN CORPUSCULAR VOLUME 92.6 fL (80-100); MEAN PLATELET VOLUME 11.6 fL (7.4-10.4); MONOCYTES # (AUTO) 0.64 x10^3/uL (0.2-0.8); MONOCYTES % (AUTO) 13 % (2-9); NEUTROPHILS # (AUTO) 3.36 x10^3/uL (1.8-6.8); NEUTROPHILS % (AUTO) 67 % (42-75); PLATELET COUNT 117 x10^3/uL (130-400); RED CELL DISTRIBUTION WIDTH 13.7 % (9.6-15.2)
[2019-07-30 06:20] LABS: ANION GAP 6 mmol/L (5-15); CALCIUM 7.8 mg/dL (8.5-10.1); CHLORIDE 111 mmol/L (98-107)
[2019-07-30 07:15] VITALS: BP 131/56
[2019-07-30] MEDS: BUDESONIDE 0.5 MG/2 ML INHA NPPB SCH (08:06)
[2019-07-30] MEDS: ALBUTEROL/IPRATROPIUM 2.5MG/0.5MG, 3 ML NPPB SCH ×2 (08:06→12:07)
[2019-07-30] MEDS: PANTOPROZOLE 40MG TABLET PO SCH (08:57)
[2019-07-30] MEDS ORDERED: ACET325T26 PO (09:13)
[2019-07-30] MEDS ORDERED: NICO-486 TD (09:13)
[2019-07-30] MEDS ORDERED: ATOR20TA PO (11:51)
[2019-07-30] MEDS ORDERED: ASPI81TA45 PO (11:51)
[2019-07-30] MEDS ORDERED: ERGO500017 PO (16:53)
[2019-07-30] MEDS ORDERED: ATORVASTATIN 40 MG TABLET PO SCH (21:00)
[2019-07-31] MEDS ORDERED: ASPIRIN 81 MG TABLET EC PO SCH (06:00)
== END 2019-07-30 14:34 ==
LOC: SUATTDRO 16:16 → ED 18:19 → 5SO 18:20
PROVIDERS: ADMIT Hospitalist; ATTEND Hospitalist
DX: R11.2 Nausea with vomiting, unspecified (principal); R19.7 Diarrhea, unspecified; R55 Syncope and collapse; R07.89 Other chest pain; F17.200 Nicotine dependence, unspecified, uncomplicated; J96.10 Chronic respiratory failure, unspecified whether with hypoxia or hypercapnia; J43.9 Emphysema, unspecified; I11.0 Hypertensive heart disease with heart failure; I50.32 Chronic diastolic (congestive) heart failure; K21.9 Gastro-esophageal reflux disease without esophagitis; M10.9 Gout, unspecified; E11.9 Type 2 diabetes mellitus without complications; R42 Dizziness and giddiness; I95.9 Hypotension, unspecified; I65.29 Occlusion and stenosis of unspecified carotid artery; D69.6 Thrombocytopenia, unspecified; E55.9 Vitamin D deficiency, unspecified; E88.09 Other disorders of plasma-protein metabolism, not elsewhere classified; I07.1 Rheumatic tricuspid insufficiency; I48.91 Unspecified atrial fibrillation; Z79.899 Other long term (current) drug therapy; Z90.89 Acquired absence of other organs
CPT/HCPCS: 36415; 74022; 76700; 80048; 80053; 81001; 82306; 82607; 83605; 83690; 83735; 84100; 84443; 84484; 85025; 87086; 93005; 93306; 93880; 94640; 96361; 96374; 97161; 97166; 99285; G0378; J2405; J7030; J7626

== ENCOUNTER 2020-09-25 16:28 | Emergency (ER) | payer MEDICARE, MEDICAID ==
[~2020-09-25] VITALS: Ht 162.6 cm; Wt 52.5 kg
[~2020-09-25 16:28] MED LIST changes: +ACET325T26 PO; +ASPI81TA45 PO; +ATOR20TA PO; +ERGO500017 PO; -MONT10TA11 PO; +MONT10TA17 PO; +NICO-486 TD; -NICO-487 TD; +NICO-587 TD; -OXYC-307 PO; +OXYC-380 PO; +OXYC1TAB18 PO; +SULF-23 PO; -SULF1TAB24 PO
[2020-09-25 16:30] VITALS: BP 114/69
--- NOTE | 2020-09-25 16:57 | NUR ---
PT STATES THAT HER OXYGEN SATURATION IS 95 PERCENT SO SHE DOES NOT WANT TO BE SEEN. ENCOURAGED PT TO WAIT FOR AN EXAM. PT STATES SHE DOES NOT WANT TO STAY. PT AMBULATED WITHOUT ASSISTANCE TO DISCHARGE WINDOW, STEADY GAIT AND IN NO DISTRESS.
== END 2020-09-25 17:00 | disposition left against medical advice (07) ==
LOC: ED 16:45
DX: R06.02 Shortness of breath (principal); J44.9 Chronic obstructive pulmonary disease, unspecified; Z53.21 Procedure and treatment not carried out due to patient leaving prior to being seen by health care provider
CPT/HCPCS: 93005

== ENCOUNTER 2021-01-18 18:40 | Emergency (ER) | payer MEDICARE, MEDICAID ==
[~2021-01-18] VITALS: Ht 157.5 cm; Wt 51.8 kg
[~2021-01-18 18:40] MED LIST changes: -DOXY100C2 PO; +DOXY100C5 PO; -OXYC-380 PO; +OXYC-501 PO
[2021-01-18 20:29] LABS: BASOPHILS % (AUTO) 1 % (0-1); EOSINOPHILS % (AUTO) 3 % (1-7); LYMPHOCYTES % (AUTO) 17 % (22-44); MEAN CORPUSCULAR HEMOGLOBIN 30.7 pg (27.0-34.8); MEAN CORPUSCULAR HGB CONC 33.2 g/dL (32.4-35.8); MEAN PLATELET VOLUME 10.7 fL (7.4-10.4); MONOCYTES % (AUTO) 9 % (2-9); NEUTROPHILS % (AUTO) 70 % (42-75); PLATELET COUNT 155 x10^3/uL (130-400); RED BLOOD COUNT 4.46 x10^6/uL (3.82-5.3); RED CELL DISTRIBUTION WIDTH 13.2 % (9.6-15.2)
[2021-01-18 20:42] LABS: ALBUMIN 3.4 g/dL (3.4-5.0); CALCIUM 8.6 mg/dL (8.5-10.1); CREATININE 0.69 mg/dL (0.55-1.02)
[2021-01-18 20:47] LABS: ANION GAP 5 mmol/L (5-15); CHLORIDE 108 mmol/L (98-107); TROPONIN I < 0.015 ng/mL (0.000-0.045)
[2021-01-18 20:53] VITALS: BP 113/70
--- NOTE | 2021-01-18 20:57 | NUR ---
C/O DIFFICULTY BREATHING TODAY. HX COPD WITH HOME O2 DEPENDENCE. DENIES BEING ILL, DENIES COUGH, FEVER, OR SICK CONTACTS. ALSO C/O PAIN, WARMTH AND REDDNESS ON HER LEFT WRIST X 2-3 DAYS. Addendum: 01/18/21 at 2101 by BDICECCO RIGHT WRIST
[2021-01-18] MEDS ORDERED: ALBUTEROL/IPRATROPIUM 2.5MG/0.5MG, 3 ML NEB ONE (21:00)
[2021-01-18] MEDS ORDERED: SULFAMETH./TRIMETHOPRIM DS 800MG/160MG TABLET PO ONE (21:00)
[2021-01-18] MEDS ORDERED: SULFAMETH./TRIMETHOPRIM DS 800MG/160MG TABLET ONE (21:02)
[2021-01-18] MEDS ORDERED: ALBUTEROL/IPRATROPIUM 2.5MG/0.5MG, 3 ML ONE (21:02)
== END 2021-01-18 21:41 | disposition home or self-care (01) ==
LOC: ED 21:10
DX: L03.113 Cellulitis of right upper limb (principal); J44.9 Chronic obstructive pulmonary disease, unspecified; Z20.822 Contact with and (suspected) exposure to COVID-19; F17.200 Nicotine dependence, unspecified, uncomplicated
CPT/HCPCS: 36415; 71045; 80048; 82040; 83880; 84484; 85025; 93005; 94640; 99285; U0003; U0005